=== PATIENT | male | born 1975 | race Caucasian/White ===

== ENCOUNTER 2018-05-17 23:17 | Emergency (ER) | payer OTHER ==
[~2018-05-17] VITALS: Ht 182.9 cm; Wt 90.7 kg
[~2018-05-17 23:17] MED LIST: AMOXICILLIN500 M1 PO; CORTISPORIN OTI10 M2 OT; IBUPROFEN 800800 M1 PO; KEFLEX500 MG PO; KEPPRA 500 MG500 M1 PO; NOHOMEMEDICATIONS; PHENERGAN 25 MG25 MG PO; ROBAXIN 750 MG750 M1 PO; ULTRAM 50MG TAB50 MG PO
[2018-05-17 23:59] LABS: ABSOLUTE BASOPHILS 0.1 thou/uL (0.0-0.2); ABSOLUTE EOSINOPHILS 0.3 thou/uL (0.0-0.7); ABSOLUTE LYMPHOCYTES 1.8 thou/uL (0.8-5.3); ABSOLUTE MONOCYTES 0.6 thou/uL (0.0-1.2); ABSOLUTE NEUTROPHILS 4.3 thou/uL (1.6-8.1); BASOPHILS 1.2 %; EOSINOPHILS 4.2 %; HEMATOCRIT 41.3 % (42.0-52.0); HEMOGLOBIN 13.6 gm/dL (14.0-18.0); LYMPHOCYTES 25.8 %; MCH 30.3 pg (26.0-34.0); MCV 91.9 fL (80.0-100.0); MONOCYTES 7.9 %; MPV 8.5 fl. (7.2-11.1); NUCLEATED RBCS 0 /100WBC; PLATELET COUNT* 278 thou/uL (150-400); POLYS 60.9 %; RDW-CV 13.5 % (10.5-14.5)
[2018-05-18 00:03] LABS: CALCIUM 8.9 mg/dL (8.5-10.1); CREATININE 0.9 mg/dL (0.6-1.3); POTASSIUM 3.5 mmol/L (3.5-5.1)
[2018-05-18 00:07] LABS: ALBUMIN 3.4 g/dL (3.4-5.0); TOTAL BILIRUBIN 0.3 mg/dL (<0.1-1.0); TOTAL PROTEIN 6.6 g/dL (6.4-8.2)
[2018-05-18] MEDS ORDERED: LORAZEPAM 0.50.5 M1 PO (00:31)
[2018-05-18 01:31] VITALS: BP 128/69
== END 2018-05-18 01:34 | disposition home or self-care (01) ==
LOC: M.ERS 23:17
PROVIDERS: Emergency Medicine
DX: R56.9 Unspecified convulsions (principal); F17.200 Nicotine dependence, unspecified, uncomplicated; Z88.6 Allergy status to analgesic agent; Z88.5 Allergy status to narcotic agent

== ENCOUNTER 2019-09-19 17:17 | Emergency (ER) | payer OTHER ==
[~2019-09-19] VITALS: Ht 185.4 cm; Wt 81.7 kg
[~2019-09-19 17:17] MED LIST changes: +LORAZEPAM 0.50.5 M1 PO
[2019-09-19 17:50] LABS: ABSOLUTE BASOPHILS 0.1 thou/uL (0.0-0.2); ABSOLUTE EOSINOPHILS 0.2 thou/uL (0.0-0.7); ABSOLUTE LYMPHOCYTES 1.9 thou/uL (0.8-5.3); ABSOLUTE MONOCYTES 0.4 thou/uL (0.0-1.2); ABSOLUTE NEUTROPHILS 3.6 thou/uL (1.6-8.1); BASOPHILS 0.8 %; EOSINOPHILS 2.6 %; HEMATOCRIT 37.5 % (42.0-52.0); HEMOGLOBIN 13.1 gm/dL (14.0-18.0); LYMPHOCYTES 31.5 %; MCV 91.2 fL (80.0-100.0); MONOCYTES 6.4 %; MPV 8.1 fl. (7.2-11.1); NUCLEATED RBCS 0 /100WBC; PLATELET COUNT* 277 thou/uL (150-400); POLYS 58.7 %; RBC 4.11 mil/uL (4.50-6.00); RDW-CV 13.2 % (10.5-14.5); WBC 6.1 thou/uL (4.0-11.0)
[2019-09-19 18:11] LABS: CALCIUM 7.5 mg/dL (8.5-10.1); CREATININE 0.7 mg/dL (0.6-1.3)
[2019-09-19 18:16] LABS: ALBUMIN 2.9 g/dL (3.4-5.0); TOTAL BILIRUBIN 0.2 mg/dL (<0.1-1.0); TOTAL PROTEIN 5.6 g/dL (6.4-8.2)
[2019-09-19] MEDS ORDERED: KEPPRA XR500 MG PO (18:57)
[2019-09-19] MEDS ORDERED: KEPPRA 500 MG500 M1 PO (19:21)
[2019-09-19 20:26] VITALS: BP 143/87
[2019-09-19 21:18] LABS: AMP/METHAMP POSITIVE (Negative); BARBITURATES Negative (Negative); BENZODIAZEPINES POSITIVE (Negative); COCAINE Negative (Negative); METHADONE Negative (Negative); OPIATES Negative (Negative); PCP Negative (Negative); THC Negative (Negative)
--- NOTE | 2019-09-20 14:03 | EKG ---
[place] [address] ELECTROCARDIOGRAM REPORT Name: DEL FIGUEROA Room: [facility]#: [id number] Admission: 09/19/19 Attend Phys: Discharge: 09/19/19 Date of : 73 Report #: [id number] THIS REPORT FOR: //name// [facility] ED Test Date: 2019-09-19 Test Time: 17:46:46 Pat Name: DEL FIGUEROA Department: Room: Gender: Compound Mixer: [place] : 1975 Requested By: Laurent Velazquez Order Number: [id number] MD: Akash Adamson Measurements Intervals [place] Rate: 81 P: -15 NE: 125 QRS: -2 QRSD: 113 T: 42 QT: 406 QTc: 472 Interpretive Statements Sinus rhythm Incomplete right bundle branch block Baseline wander in lead(s) V2,V3 No previous ECG available for comparison Electronically Signed On 09-20-2019 14:03:11 [employer] by Akash Adamson [email or web address] <ELECTRONICALLY SIGNED> By: Akash Adamson MD, [facility] 09/20/19 1403 1746 1746 Akash Adamson MD, FACC /EPI
== END 2019-09-19 20:29 | disposition home or self-care (01) ==
LOC: M.ERS 17:17
PROVIDERS: Family Medicine
DX: R56.9 Unspecified convulsions (principal); Z88.6 Allergy status to analgesic agent; Z88.5 Allergy status to narcotic agent

== ENCOUNTER 2021-09-01 07:03 | Emergency (ER) | payer OTHER ==
[~2021-09-01] VITALS: Ht 185.4 cm; Wt 90.7 kg
[~2021-09-01 07:03] MED LIST changes: +KEPPRA XR500 MG PO
[2021-09-01] MEDS ORDERED: NAPROSYN500 MG PO (09:17)
[2021-09-01] MEDS ORDERED: CYCLOBENZAPRINE5 MG PO (09:17)
[2021-09-01 09:29] VITALS: BP 131/74
== END 2021-09-01 09:30 | disposition home or self-care (01) ==
LOC: M.ERS 07:03
DX: M54.50 Low back pain, unspecified (principal); F17.210 Nicotine dependence, cigarettes, uncomplicated; Z88.6 Allergy status to analgesic agent; Z88.5 Allergy status to narcotic agent